=== PATIENT | female | born 1980 | race Caucasian/White ===

== ENCOUNTER 2016-11-17 19:07 | Emergency (ER) | payer OTHER ==
[~2016-11-17] VITALS: Ht 152.4 cm; Wt 91.5 kg
[2016-11-17 19:12] VITALS: Ht 152.4 cm; Wt 91.5 kg
[2016-11-17] MEDS ORDERED: ONDANSETRON 4 MG INJ IV STA (20:00)
[2016-11-17] MEDS ORDERED: ACETAMINOPHEN 500 MG TAB PO STA (20:00)
[2016-11-17] MEDS ORDERED: morphine 4 MG/ML VIAL IV STA (20:00)
[2016-11-17] MEDS ORDERED: SOD CHLORIDE 0.9% 1,000 ML IV STA (20:00)
--- NOTE | 2016-11-17 20:10 | ERD ---
ER Documentation Chief Complaint Date/Time DATE: 11/17/16 TIME: 20:06 Chief Complaint RUQ abd pain radaiting to back x 4 days, nausea HPI This is a 36-year-old female who presents emergency Department today complaining of abdominal and flank pain for the past 5 days. Patient states she went to [facility] yesterday and was told that she had a bladder infection traveled her kidneys. She states that wanted to admit her but her insurance did not cover her for her to be there and she had to [facility] a [facility] did not want to go there. States she was given antibiotics as well as pain medication and had a CT scan. States that today she developed a low-grade fever as well as some nausea and vomiting. Patient states she had her gallbladder removed in 2003 Denies any dysuria. ROS All systems reviewed and are negative except as per history of present illness. Medications Home Meds Active Scripts Tramadol HCl (Tramadol HCl) 50 Mg Tablet, 50 MG PO Q4 Y for PAIN, #20 TAB Prov:VIRAL EARLY PA-C 11/17/16 Ondansetron Hcl* (Zofran*) 4 Mg Tablet, 4 MG PO Q6H for NAUSEA AND/OR VOMITING, #30 TAB Prov:VIRAL EARLY PA-C 11/17/16 Allergies Allergies: Coded Allergies: No Known Allergy (Unverified , 11/17/16) PMhx/Soc History of Surgery: Yes (cholecystecomy) Anesthesia Reaction: No Hx Neurological Disorder: No Hx Respiratory Disorders: No Hx Cardiac Disorders: No Hx Psychiatric Problems: No Hx Miscellaneous Medical Probl: No Hx Alcohol Use: No Hx Substance Use: No Hx Tobacco Use: No Smoking Status: Never smoker Physical Exam Vitals Vital Signs Date Time Temp Pulse Resp B/P Pulse Ox O2 Delivery O2 Flow Rate FiO2 11/17/16 19:12 100.2 93 20 131/66 99 Physical Exam Const: Obese, no acute distress Head: Atraumatic Eyes: Normal Conjunctiva ENT: Normal External Ears, Nose and Mouth. Neck: Full range of motion..~ No meningismus. Resp: Clear to auscultation bilaterally Cardio: Regular rate and rhythm, no murmurs Abd: Soft, epigastric tenderness pain non distended. Normal bowel sounds no right lower quadrant pain. No left lower quadrant pain. No tenderness at McBurney's. Skin: No petechiae or rashes Back: No midline tenderness. Right-sided flank tenderness. No CVA tenderness Ext: No cyanosis, or edema Neur: Awake and alert Psych: Normal Mood and Affect Result Diagram: 11/17/16201611/17/162016 Results 24 hrs Laboratory Tests Test 11/17/16 20:17 Alanine Aminotransferase (ALT/SGPT) 85IU/L Albumin 4.1g/dl Albumin/Globulin Ratio 1.07 Alkaline Phosphatase 83IU/L Anion Gap 19 Aspartate Amino Transf (AST/SGOT) 41IU/L Basophils # 0.010^3/ul Basophils % 0.3% Blood Morphology Comment Blood Urea Nitrogen 4mg/dl Calcium Level 9.1mg/dl Carbon Dioxide Level 26mmol/L Chloride Level 100mmol/L Creatinine 0.56mg/dl Direct Bilirubin 0.00mg/dl Eosinophils # 0.010^3/ul Eosinophils % 0.1% Globulin 3.80g/dl Glucose Level 101mg/dl Hematocrit 40.1% Hemoglobin 13.6g/dl Indirect Bilirubin 0.4mg/dl Lipase 84U/L Lymphocytes # 1.010^3/ul Lymphocytes % 10.0% Mean Corpuscular Hemoglobin 29.4pg Mean Corpuscular Hemoglobin Concent 33.9g/dl Mean Corpuscular Volume 86.7fl Mean Platelet Volume 7.3fl Monocytes # 0.810^3/ul Monocytes % 8.4% Neutrophils # 8.110^3/ul Neutrophils % 81.2% Nucleated Red Blood Cells # 0.010^3/ul Nucleated Red Blood Cells % 0.0/100WBC Platelet Count 84585^3/UL Potassium Level 3.9mmol/L Red Blood Count 4.6310^6/ul Red Cell Distribution Width 12.7% Sodium Level 141mmol/L Total Bilirubin 0.4mg/dl Total Protein 7.9g/dl Urine Bilirubin NEGATIVE Urine Clarity CLEAR Urine Color LT. YELLOW Urine Glucose NEGATIVE% Urine Hemoglobin NEGATIVE Urine Ketones NEGATIVE Urine Leukocyte Esterase NEGATIVE Urine Nitrite NEGATIVE Urine Specific [place] 1.015 Urine Total Protein NEGATIVE Urine Urobilinogen 1.0 E.U./dL Urine pH 8.0 White Blood Count 9.910^3/ul Current Medications Medications (Trade) Dose Ordered Sig/Janessa Route PRN Reason Start Time Stop Time Status Last Admin Dose Admin Sodium Chloride (NS) 1,000 ml @ 1,000 mls/hr Q1H STAT IV 11/17/16 20:00 11/17/16 20:59 DC 11/17/16 20:18 Morphine Sulfate (morphine) 4 mg ONCE STAT IV 11/17/16 20:00 11/17/16 20:03 DC 11/17/16 20:17 Ondansetron HCl (Zofran Inj) 4 mg ONCE STAT IV 11/17/16 20:00 11/17/16 20:03 DC 11/17/16 20:18 Acetaminophen (Tylenol Tab) 500 mg ONCE STAT PO 11/17/16 20:00 11/17/16 20:03 DC 11/17/16 20:18 Procedures/MDM This 36-year-old female who presents to the emergency department today complaining of some abdominal and right-sided flank pain. Patient was seen yesterday at an outside hospital and was treated for what appears to be possible pyelonephritis. She is given a prescription for Keflex and Marcell[place] patient states she has been taking the medication. On physical exam patient does have some epigastric tenderness and she does have a temperature of 100.2. I did obtain new laboratory work today. I do not feel the patient requires a CT scan at this time especially given that she had one yesterday as I feel the risk would outweigh the benefits at this time. Laboratory work shows no elevated white blood cell count. She is not anemic. Platelets are within normal limits. Neutrophils are slightly elevated. Electrolytes are within normal limits. Glucose is normal limits. ALT is mildly elevated. Bilirubin is within normal limits. Lipase within normal limits. UA is negative. Negative leukocyte esterase. Negative nitrites. test is negative. Patient's laboratory work is negative and a low suspicion for acute pyelonephritis at this time. Low suspicion for any acute surgical abdomen. Patient's symptoms at this time consistent with abdominal pain and flank pain of uncertain etiology or possibly resolving pyelonephritis. Patient has a normal lipase and no elevated white blood cell count and she has had gallbladder removed and I have lower suspicion for retained stone or pancreatitis. She has no lower abdominal pain and low suspicion for acute appendicitis, ovarian torsion, delivering abscess or ectopic . Patient was given morphine, Zofran, fluids here in the emergency Department and symptoms improved . I will give her a prescription for Zofran and tramadol for home. She may continue taking the Keflex she was prescribed At this time the patient is stable for discharge and outpatient management. Patient should follow up with their PCP in the next 1-2 days. They may return to the emergency department sooner for any persistent or worsening of symptoms. Patient understood and agreed with the plan. Discussed the patient with Dr. Fam and he is in agreement with the plan. Departure Diagnosis: Primary Impression: Abdominal pain Abdominal location: epigastric Qualified Code: R10.13 - Epigastric pain Condition: Fair VIRAL EARLY PA-C Nov 17, 2016 20:09
[2016-11-17 20:27] LABS: ADD UMIC NO; URINE BILIRUBIN (Dip) NEGATIVE (NEGATIVE); URINE BLOOD (Dip) NEGATIVE (NEGATIVE); URINE COLOR LT. YELLOW (YELLOW); URINE GLUCOSE (Dip) NEGATIVE (NEGATIVE); URINE KETONES (Dip) NEGATIVE (NEGATIVE); URINE LEUKOCYTE ESTERASE (Dip) NEGATIVE (NEGATIVE); URINE NITRITE (Dip) NEGATIVE (NEGATIVE); URINE TOTAL PROTEIN (Dip) NEGATIVE (NEGATIVE); URINE UROBILINOGEN (Dip) 1.0 E.U./dL (0.1-1.0)
[2016-11-17 20:31] LABS: BASOPHILS % 0.3 % (0.0-2.0); EOSINOPHILS % 0.1 % (0.0-7.0); HEMATOCRIT 40.1 % (37.0-47.0); HEMOGLOBIN 13.6 g/dl (12.0-16.0); MEAN CORPUSCULAR HEMOGLOBIN 29.4 pg (29.0-33.0); MEAN CORPUSCULAR HGB CONC 33.9 g/dl (32.0-37.0); MEAN CORPUSCULAR VOLUME 86.7 fl (82.0-101.0); MEAN PLATELET VOLUME 7.3 fl (7.4-10.4); MONOCYTE # 0.8 10^3/ul (0.3-0.9); MONOCYTES % 8.4 % (0.0-11.0); NEUTROPHIL # 8.1 10^3/ul (1.6-7.5); NEUTROPHILS % 81.2 % (39.0-77.0); PLATELET COUNT 405 10^3/UL (140-440); RED BLOOD COUNT 4.63 10^6/ul (4.20-5.40); RED CELL DISTRIBUTION WIDTH 12.7 % (11.5-14.5); UNCORRECTED WBC 9.9 10^3/ul (4.8-10.8); WHITE BLOOD COUNT 9.9 10^3/ul (4.8-10.8)
[2016-11-17 20:33] LABS: CONDITION 1
[2016-11-17 20:35] LABS: ALBUMIN 4.1 g/dl (3.3-4.9)
[2016-11-17 20:36] LABS: POTASSIUM 3.9 mmol/L (3.5-5.1)
[2016-11-17 20:38] LABS: BILIRUBIN,INDIRECT 0.4 mg/dl (0-1.1); BILIRUBIN,TOTAL 0.4 mg/dl (0.2-1.3); CREATININE 0.56 mg/dl (0.44-1.00)
[2016-11-17 20:39] LABS: ALBUMIN/GLOBULIN RATIO 1.07; CALCIUM 9.1 mg/dl (8.4-10.2); TOTAL PROTEIN 7.9 g/dl (6.1-8.1)
[2016-11-17] MEDS ORDERED: ONDA4TAB8 PO (22:22)
[2016-11-17] MEDS ORDERED: TRAM50TA2 PO (22:23)
[2016-11-17 22:44] VITALS: BP 108/72; PULSE 97; RESP 12; TEMP 100.7
== END 2016-11-17 22:47 | disposition home or self-care (01) ==
LOC: FTE 19:07
DX: R10.13 Epigastric pain (principal); R11.2 Nausea with vomiting, unspecified
CPT/HCPCS: 80053; 81003; 83690; 85025; 96374; 96375; J2270; J2405; J7030; Z7502; Z7610